=== PATIENT | female | born 1990 | race Caucasian/White ===

== ENCOUNTER 2018-12-24 16:14 | Outpatient (CLI) | payer BC ==
[~2018-12-24] VITALS: Ht 172.7 cm; Wt 109.1 kg
--- NOTE | 2018-12-24 16:20 | NUR ---
Pt here with c/o ?SROM. Pt states feeling leaking of fluid off and on today. Had BPP this afternoon in office. Pt to [facility], explained. 35 weeks gestation G1. Pt with hx of lupus and RA. SVE: FT/thick and high with small amount of bloody discharge, amniotrace done and unable to detect at this time. Roles here and notified. Pt to place a pad on and can be up and ambulating in hallways. Assessment complete. VSS. FHR reactive. Pt denies feeling any contractions or cramping. 1710: pt calls and states she feels leaking at this time. Amniotrace negative, no fluid noted on exam glove. Roles at nurse's station and notified. Pt up and ambulating in hallway.
[2018-12-24 16:59] VITALS: BP 124/73; PULSE 76; TEMP 98.5
[2018-12-24] MEDS ORDERED: PRENATAL PO (17:05)
[2018-12-24] MEDS ORDERED: PLAQUENIL 200M200 MG PO (17:07)
[2018-12-24 18:45] VITALS: BP 130/63; PULSE 82
--- NOTE | 2018-12-24 18:45 | NUR ---
repeat SVE with no changes noted.
--- NOTE | 2018-12-24 19:10 | NUR ---
discharge instructions reviewed with pt and spouse. Questions invited and answered. Ambulatory of unit.
== END 2018-12-24 19:10 | disposition home or self-care (01) ==
LOC: LDRO 16:14 → LDR 16:20 → LDRO 19:10
DX: O99.89 Other specified diseases and conditions complicating pregnancy, childbirth and the puerperium (principal); Z3A.35 35 weeks gestation of pregnancy
CPT/HCPCS: OP

== ENCOUNTER 2019-01-20 06:24 | Inpatient (IN) | payer BC ==
[~2019-01-20] VITALS: Ht 170.2 cm; Wt 112.3 kg
[2019-01-20] VITALS (7 sets, daily range): BP systolic 112–126; BP diastolic 63–70; PULSE 68–88; TEMP 98.3–98.6
[~2019-01-20 06:24] MED LIST: PLAQUENIL 200M200 MG PO; PRENATAL PO
--- NOTE | 2019-01-20 19:00 | NUR ---
G1L0. 38-6. Ambulatory to LDR 3 with spouse for scheduled cytotec induction. Clean gown on. EFM and TOCO explained and applied. Pt denies contractions, LOF or vaginal bleeding. Reports good movement. Plan of care explained to pt and who verbalize understanding, questions answered. VSS. Consents completed. 1930: IV started. LR bolus infusing without difficulties. 1949: SVE /-2. FHR strip reactive. Cytotec explained and administered per orders. Plan of care explained. Call light within reach.
[2019-01-20] MEDS ORDERED: FOLIC ACID 11 MG/TA1 PO (19:23)
[2019-01-20 20:35] LABS: BASO % 0.2 % (0.0-2.0); EOS # 0.2 (0.0-0.7); GRAN # 7.2 (1.4-6.5); GRAN % 74.3 % (42.2-75.2); LYMPH # 1.4 (1.2-3.4); LYMPH % 14.9 % (20.0-51.0); MEAN CELL VOLUME 87 fl (80.0-100.0); MEAN CORPUSCULAR HGB CONC 32 g/dl (33.0-37.0); MEAN PLATELET VOLUME 10.3 fl (7.4-10.4); MONO # 0.7 (0.1-0.6); MONO % 7.6 % (1.7-9.3); PLATELET COUNT 202 K/mm3 (130-400); RED BLOOD COUNT 3.47 M/mm3 (4.10-5.30); REDCELL DISTRIBUTION WIDTH-CV 13.5 % (11.5-14.5)
[2019-01-20 20:42] LABS: HEMATOCRIT 30.3 % (37.0-47.0); HEMOGLOBIN 9.6 g/dl (12.5-16.0); MEAN CORPUSCULAR HEMOGLOBIN 28 pg (27.0-31.0)
[2019-01-21] VITALS (78 sets, daily range): BP systolic 99–151; BP diastolic 51–92; PULSE 66–116; TEMP 98.2–99.7
--- NOTE | 2019-01-21 04:08 | NUR ---
FHR strip reactive. Pt off monitors to shower before starting pitocin. Plan of care explained to pt and who verbalize understanding.
--- NOTE | 2019-01-21 04:36 | NUR ---
Monitors reapplied. Plan of care explained to pt. 0457: LR bolus infusing without difficulties. 0536: Pitocin explained and started infusing at 2mus/hr per protocol. Questions answered.
--- NOTE | 2019-01-21 06:20 | NUR ---
0620-Recieved bedside shift report from ANGELA Gilmore patient resting with spouse at bedside. Pitocin infusing per protocol at 6mu/min. Updated on plan of care. Denies needs. 0702-Up to bathroom, returns to bed. RN adjusts toco, difficulty tracing.. 0730-WL RN continues to readust toco difficulty tracing contractions. 0750-Patient up to BB, Difficulty tracing EFM due to maternal positioning. 0810-RN adjusting EFM due to difficulty tracing contractions. 0826-Up to bathroom 0840-SVE by this RN 2-/-2 Repositioned WL 0900-Dr. Gross Updated on SVE, see physician nontification.
--- NOTE | 2019-01-21 10:00 | NUR ---
1000-Patient calls out to report SROM, Amnitest +, Assisted with linen change and patient standing at bedside. 1012-Dr. Gross updated on patient. 1020-Patient requests epidural, SHU Salgado notified who is on unit. 1026-Patient sitting upright at bedside for epiodural placement. 1035-Test dose administered by SHU Salgado patient tolerates well, see flow record. 1040-Patient WL, Updated on safety and plan of care. Mountain changed due to difficulty tracing contractions. [id number] RN remains at bedside adjusting EFM. 1130-Patient supine for stover placement, Attempt at placement by Laurence Hughes. FHR decel down to 90bpm lasting 80seconds, Repositioned RL and IVF bolus, BP 104/60, HR 74, Oxygen via oxymask at 10l/min, Pit paused. [place] care provided. 1140-Dr. Gross on unit, reviews FHR monitor. Updated on FHR decel and current BP's. 1043-10mg ephedrine given per protocol, see EMAR. Maternal BP 99/58 1150-Pitocin turned back on at 14mu/min 1155-Maternal BP 114/71 Dr. Gross to room, SVE 3/70/-2, [place] care provided. Repositioned back RL. 1215-Stover to DD by this RN Clear yellow urine return. Repositioned LL with peanut ball. 1225-Dr. Gross on unit reviews FHR monitor. Continued difficulty keeping regular tracing of contractions. 1240-Dr. Gross in to see patient. SVE 4//-3, IUPC placed by . Updated patient on plan of care. 1245-Late decel in FHR down to 90-100BPM with spontaneous return to baseline followed by FHR decel down to 90bpm with spontaneous return to baseline. Dr. Gross remains on unit. Reviews strip. Orders to cut pitocin to 6mu/min. 1257-Repositioned LL with peanut.
--- NOTE | 2019-01-21 13:55 | NUR ---
1355-SVE by this RN 4-5/80/-2, Repositioned WR w/peanut. 1400-Updated Dr. Gross, see physician notification. Orders to start increasing pitocin. Pit to 8mu/min at this time.
--- NOTE | 2019-01-21 15:45 | NUR ---
1545-Dr. Gross to patient room. Reviews plan of care with patient. SVE /-2, Repositoned WR with peanut. Pitocin increased per MD order to 14mu/min. 1615-MD reviews Strip. Orders to notify prior to end of shift at 1800 what cervix is. 1655-Patient LL. Reports feeling "tired." Reviewed BP 104/67 and 115/71. Patient denies dizziness or changes in eyesight or hearing. Encouraged to rest and notify nursing if feeling symptomtic of hypotension. 1707-BP 110/62,
--- NOTE | 2019-01-21 19:25 | NUR ---
RN to bedside for SVE, complete and +[address] Gross updated, see physician notification.
--- NOTE | 2019-01-21 19:35 | NUR ---
Pt positioned into lithotomy position. Educated on pushing techniques, pt verbalized understanding. Initial push at this time.
--- NOTE | 2019-01-21 20:30 | NUR ---
2009 - Pt pushing well with contractions. Late decelerations down to 135 bpm noted after pushes with spontaneous return to baseline. Olson catheter removed at this time. 250 mL of urine. 2034 - Pt continues to push well with contractions. Continues to have late decelerations after pushes with spontaneous return to baseline. Dr. Gross called for delivery.
--- NOTE | 2019-01-21 21:14 | NUR ---
2057 - Dr. Gross at bedside. Small crown with pushes. 2099 - Bed broken down and room set up for delivery. IUPC out by Dr. Gross, external toco placed. 2107 - Large crown with pushes. Nursery nurse Gabriel Reyes at bedside. 2113 - Spontaneous delivery of viable boy. Infant placed on mothers abdomen. Cord clamped x [address] Gross and cut by FOB. Care of assumed to Nursery RN. Pitocin off. 2118 - Spontaneous delivery of intact placenta. Pitocin restarted at 333 mL/hr. Fundal massage by Dr. Gross, free flow bleeding with massage. Verbal orders to give IM Methergine now, see 2129 - Repair of second degree laceration by Dr. Gross. Bleeding improved. Pericare provided. New chux beneath patient. Ice pack to perineum. Pt repositioned in bed for comfort. Safety precautions reviewed. Call light within reach. recovery started. See physician delivery note.
--- NOTE | 2019-01-21 23:45 | NUR ---
Pt able to lift and hold each leg off of bed for 5 seconds. Pt positioned to sitting on edge of bed. Epidural catheter removed. Tip smooth, blue, and intact. Pt able to ambulate to bathroom independently. Void 500 mL. Pericare explained and provided. Mesh panties and pad applied. Clean gown on. Pt to wheelchair to transfer to room 216.
[2019-01-22 01:45] VITALS: BP 107/55; PULSE 79; TEMP 98.2
[2019-01-22 05:45] VITALS: BP 105/57; PULSE 91; TEMP 98.4
[2019-01-22] MEDS ORDERED: PERCOCET 325 MG1 TA2 PO (08:03)
[2019-01-22] MEDS ORDERED: IBU600 MG PO (08:03)
[2019-01-22 08:15] VITALS: BP 120/81; PULSE 86; TEMP 98
[2019-01-22 11:40] VITALS: BP 123/72; PULSE 100; TEMP 99.7
[2019-01-22 16:00] VITALS: BP 103/55; PULSE 89; TEMP 98.3
[2019-01-22 21:00] VITALS: BP 110/62; PULSE 98; TEMP 98.2
[2019-01-23 09:00] VITALS: BP 134/70; PULSE 93; TEMP 98.7
[2019-01-23 16:59] VITALS: BP 132/64; PULSE 87; TEMP 97.7
--- NOTE | 2019-01-23 18:30 | NUR ---
1830 DISMISS PAPERWORK GONE OVER AND QUESTIONS ANSWERED. NURSING BABY 1914 DISMISSED TO HOME PER AMB ACC BY AND LINE APPLIANCE ASSEMBLER.
== END 2019-01-23 19:15 | disposition home or self-care (01) | DRG 806 ==
LOC: LDR 06:24 → OB 01-22
PROVIDERS: ADMIT Obstetrics & Gynecology
PROC: 10E0XZZ Delivery of Products of Conception, External Approach (ICD-10-PCS; principal; 2019-01-20)
PROC: 3E033VJ Introduction of Other Hormone into Peripheral Vein, Percutaneous Approach (ICD-10-PCS; 2019-01-20)
PROC: 3E0P7VZ Introduction of Hormone into Female Reproductive, Via Natural or Artificial Opening (ICD-10-PCS; 2019-01-20)
PROC: 0KQM0ZZ Repair Perineum Muscle, Open Approach (ICD-10-PCS; 2019-01-20)
DX: O99.12 Other diseases of the blood and blood-forming organs and certain disorders involving the immune mechanism complicating childbirth (principal); D68.62 Lupus anticoagulant syndrome; Z37.0 Single live birth; M32.9 Systemic lupus erythematosus, unspecified; O99.02 Anemia complicating childbirth; D64.9 Anemia, unspecified; Z3A.39 39 weeks gestation of pregnancy; O62.2 Other uterine inertia; O70.1 Second degree perineal laceration during delivery; O76 Abnormality in fetal heart rate and rhythm complicating labor and delivery; O99.63 Diseases of the digestive system complicating the puerperium; K59.00 Constipation, unspecified
CPT/HCPCS: J2210; J2405; J2590; J7120

== ENCOUNTER → 2019-01-25 | Outpatient (CLI) | payer BC ==
[~2019-01-25] MED LIST changes: +FOLIC ACID 11 MG/TA1 PO; +IBU600 MG PO; +PERCOCET 325 MG1 TA2 PO
--- NOTE | 2019-01-25 17:49 | NUR ---
Pt, Theresa Miller, presents to walk-in clinic with four day old baby boy, Josi Miller, for a evaluation because of difficult latch and sore nipples. She is also concerned about Josi's intake as he has not had as many voids as expected. Josi was born by on [birth year] and weighed 7#13.6 oz (3560 gms). He has nursed about 13 times in the last 24 hours, falling asleep at the breast after only a short feeding and then waking up soon after hungry again. Pt places Josi at the breast and allows him to take a shallow latch. LC advises/assists with better latch by instruction compression of the areola and helping to keep Josi's jaw open wider. Swallows quickly ensue but if the jaw is released the starts a choppy motion of the jaw, likely letting his tongue drop in and or the nipple to get shallow. Because it is hard to keep the best latch without the jaw traction, the nipple shield is placed and Josi nurses well. Feeding on the second breast is similar. The breasts are noted to be pretty full so anticipate as engorgement subsides he may be able to latch better without the shield. After Josi had a gain of 2.9oz (82 gms). Family educated on verifying if diapers have urine as well as stool, anticipate they have missed some as he has a nice void while at clinic. Weaning from the shield also reviewed. POC: Continue q 2-3 hours, use shield or consider pumping briefly prior to latch if breast is firm or Josi cannot hold a latch. F/U: Josi has an appointment with Dr. Ricci after this, and follow up at walk-in clinic as desired. Questions invited and answered.
== END ==
LOC: OLC 12:46
DX: Z39.1 Encounter for care and examination of lactating mother (principal); Z71.89 Other specified counseling

== ENCOUNTER 2021-02-22 17:48 | Outpatient (CLI) | payer BC ==
[2021-02-22 18:00] VITALS: BP 125/84; PULSE 122; TEMP 98.7
--- NOTE | 2021-02-22 18:20 | NUR ---
Bedside report received from Ida MILLER and care was assumed at this time. Pt resting in bed, no signs of distress. Pt denies feeling nauseous while laying flat in bed. Plan of care discussed and pt verbalized an understanding.
[2021-02-22 18:30] VITALS: BP 131/64; PULSE 99; TEMP 100.9
--- NOTE | 2021-02-22 18:30 | NUR ---
RN phoned Dr. Vasquez to give report on triage pt. RN informed provider that pt reports to unit stating she started vomiting and having diarrhea since approx. 0400 and has been unable to keep fluids down even with sublingual Zofran. Pt is a pt of Dr. Guerrero, , 36.3 weeks and was seen in the office yesterday and was 1cm and thick. Pt denies feeling contractions but mild contractions lasting 30-50 sec Q2-5 min are detected on monitor but abdomen palpates soft. Babe's baseline is 160-165 mod. variability, with 15x15 accels no decels. Provider gave verbal order to give 1L LR bolus over 1hr, 4mg IV Zofran in LR bag, check pt's cervix and call once bag is finished.
[2021-02-22 19:00] VITALS: BP 107/64; PULSE 95
--- NOTE | 2021-02-22 19:25 | NUR ---
20G IV STARED IN PT'S LEFT WRIST BY PINKY MCKNIGHT RN AT THIS TIME.
[2021-02-22] MEDS ORDERED: ASPIRIN 81M81 MG/TA2 PO (19:52)
--- NOTE | 2021-02-22 19:57 | NUR ---
VISIBLE BREAKS IN FHTS ARE OBSERVED, RN AT BEDSIDE TO ADJUST MONITOR. MOVEMENT IS HEARD ON MONITOR. MOTHER RESTING IN BED WATCHING TV, NO SIGNS OF DISTRESS. MOTHER DENIES FURTHER NEEDS AT THIS TIME
--- NOTE | 2021-02-22 20:09 | NUR ---
PT RESTING IN BED WATCHING TV, PLAN OF CARE DISCUSSED AND PT VERBALIZED AN UNDERSTANDING. PT STATES SHE "IS STARTING TO FEEL MUCH BETTER", PT DENIES NAUSEA AND STATES CRAMPING HAS GONE AWAY.
--- NOTE | 2021-02-22 20:27 | NUR ---
LR bolus completed at this time. Pt's IV converted to saline lock and EFM and TOCO removed to allow pt to ambulate. Pt reports feeling nauseous upon sitting up and walking around
[2021-02-22 20:30] VITALS: BP 106/59; PULSE 89; TEMP 100.7
--- NOTE | 2021-02-22 20:50 | NUR ---
2ND BAG OF LR STARTED AT THIS TIME. INFUSING AT 999ML/HR. 4MG IV ZOFRAN MIXED IN LR BAG. PT GIVEN 2 PO 500MG TYLENOL WITH CRACKERS. PT DENIES FURTHER NEEDS AT THIS TIME
--- NOTE | 2021-02-22 20:53 | NUR ---
PT BACK TO BED AND EFM AND TOCO REAPPLIED. PT DENIES FURTHER NEEDS AT THIS TIME
--- NOTE | 2021-02-22 21:30 | NUR ---
PATIENT DENIES FEELING CONTRACTIONS, NO CONTRACTIONS PER PALPATION
--- NOTE | 2021-02-22 21:45 | NUR ---
DISCHARGE INSTRUCTIONS REVIEWED WITH PATIENT AND PATIENT VERBALIZED AN UNDERSTANDING AND DENIES FURTHER QUESTIONS. PT GIVEN COPY OF DISCHARGE INSTRUCTIONS AND SIGNED HOSPITAL COPY. PATIENT STATES SHE 'FEELS MUCH BETTER'.
[2021-02-22 21:51] VITALS: BP 111/55; PULSE 81; TEMP 99.3
--- NOTE | 2021-02-22 21:51 | NUR ---
LR BOLUS COMPLETED AT THIS TIME. IV DISCONTINUED AND PRESSURE DRESSING APPLIED. EFM AND TOCO REMOVED TO ALLOW PT TO CHANGE INTO PERSONAL CLOTHES
--- NOTE | 2021-02-22 22:00 | NUR ---
PATIENT DISCHARGED TO HOME IN STABLE UNDELIVERED CONDITION AT THIS TIME. PATIENT AMBULATED OFF UNIT AT THIS TIME WITH SPOUSE
== END 2021-02-22 22:00 | disposition home or self-care (01) ==
LOC: LDRO 17:48 → LDR 18:56 → LDRO 22:00
DX: O21.9 Vomiting of pregnancy, unspecified (principal); O99.613 Diseases of the digestive system complicating pregnancy, third trimester; R19.7 Diarrhea, unspecified; Z3A.36 36 weeks gestation of pregnancy
CPT/HCPCS: OP; J2405; J7120

== ENCOUNTER 2021-03-08 09:00 | Inpatient (IN) | payer BC ==
[~2021-03-08] VITALS: Ht 170.2 cm; Wt 109.1 kg
[~2021-03-08 09:00] MED LIST changes: +ASPIRIN 81M81 MG/TA2 PO
[2021-03-11] VITALS (39 sets, daily range): BP systolic 99–134; BP diastolic 51–82; PULSE 62–85; TEMP 97.6–97.8
--- NOTE | 2021-03-11 06:25 | NUR ---
Pt arrived on unit for scheduled induction. Pt reports occasional contractions, denies any leaking of fluid or vaginal bleeding and reports normal movement. EFM and toco monitors started. Vital signs WNL. Plan of care for induction reviewed. Consents signed. IV started, labs obtained and LR infusing per order. See EMAR and flowsheet for details.
[2021-03-11] MEDS ORDERED: PROBIOTIC BLEN1 EACH PO (06:54)
[2021-03-11 07:21] LABS: BASO # 0.1 K/mm3 (0.0-0.2); BASO % 0.6 % (0.0-2.0); EOS # 0.3 K/mm3 (0.0-0.7); EOS % 2.6 % (0.0-4.0); GRAN % 71.9 % (42.2-75.2); HEMOGLOBIN 11.4 g/dl (12.5-16.0); LYMPH # 1.7 K/mm3 (1.2-3.4); LYMPH % 17.3 % (20.0-51.0); MEAN CELL VOLUME 93 fl (80.0-100.0); MEAN CORPUSCULAR HEMOGLOBIN 30 pg (27-31); MEAN CORPUSCULAR HGB CONC 32 g/dl (33.0-37.0); MEAN PLATELET VOLUME 10.9 fl (7.4-10.4); MONO # 0.7 K/mm3 (0.1-0.6); MONO % 6.8 % (1.7-9.3); PLATELET COUNT 208 K/mm3 (130-400); RED BLOOD COUNT 3.87 M/mm3 (4.10-5.30); REDCELL DISTRIBUTION WIDTH-CV 12.5 % (11.5-14.5)
[2021-03-11 07:26] LABS: HEMATOCRIT 35.8 % (37.0-47.0)
--- NOTE | 2021-03-11 08:04 | NUR ---
Dr. Petty at the bedside. FHR tracing reviewed. Plan of care for induction reviewed. SVE per Dr. Petty / and AROM with clear fluid.
--- NOTE | 2021-03-11 09:39 | NUR ---
0939- SHU Linda at the bedside for epidural placement. Pt sitting up on the edge of the bed. 0940- SPO2 monitor started. 0945- Single shot done per SHU Linda. See anesthesia records for details. 0950- Assisted pt back to supine with left wedge position. EFM and toco monitors adjusted.
--- NOTE | 2021-03-11 10:45 | NUR ---
Difficult tracing ctx pattern. This RN at the bedside with frequent position changes of toco monitor.
[2021-03-11] MEDS ORDERED: MOTRIN 800800 MG/TAB PO (10:48)
--- NOTE | 2021-03-11 14:33 | NUR ---
1408- Pt reports feeling a lot more pressure. SVE done /+2. 1409- Dr. Petty notified. See physician notification for details. 1430- Dr. Petty at the bedside. Pt set up for delivery. 1432- Pushing started. 1433- of viable female . Sparks placed on mom's abdomen. Cords clamped and cut. Care of the given to nursery RN at the bedside. 1435- of placenta. Pitocin started at 333ml/hr per order and protocol. Fundus firm and lochia WNL.
--- NOTE | 2021-03-11 17:30 | NUR ---
Pt up to the bathroom with standby assist and without complications. Pt was able to void. [place]-care done. Pt transferred to room 214 ambulatory. Oriented to room and bed. Call light within reach. Plan of care reviewed with pt and at the bedside.
--- NOTE | 2021-03-11 18:40 | NUR ---
Report recieved. Up to restroom. Resting in bed. POC reviewed and whiteboard updated.
[2021-03-12 02:00] VITALS: BP 118/71; PULSE 77; TEMP 97.8
[2021-03-12 07:10] VITALS: BP 122/72; PULSE 70; TEMP 98.1
--- NOTE | 2021-03-12 08:50 | NUR ---
Initial visit; Parents thanked Mail Room Clerk for offering congratulations and God's blessings for the of their daughter. Mail Room Clerk thanked family for choosing [facility].
== END 2021-03-12 16:20 | disposition home or self-care (01) | DRG 806 ==
LOC: LDR 03-11 06:13 → OB 03-11 17:35
PROVIDERS: ADMIT Obstetrics & Gynecology
PROC: 10E0XZZ Delivery of Products of Conception, External Approach (ICD-10-PCS; principal; 2021-03-11)
PROC: 3E033VJ Introduction of Other Hormone into Peripheral Vein, Percutaneous Approach (ICD-10-PCS; 2021-03-11)
PROC: 10907ZC Drainage of Amniotic Fluid, Therapeutic from Products of Conception, Via Natural or Artificial Opening (ICD-10-PCS; 2021-03-11)
PROC: 0UQGXZZ Repair Vagina, External Approach (ICD-10-PCS; 2021-03-11)
DX: O36.5930 Maternal care for other known or suspected poor fetal growth, third trimester, not applicable or unspecified (principal); O71.4 Obstetric high vaginal laceration alone; Z37.0 Single live birth; Z3A.38 38 weeks gestation of pregnancy; O99.214 Obesity complicating childbirth; E66.9 Obesity, unspecified; J45.909 Unspecified asthma, uncomplicated; O75.89 Other specified complications of labor and delivery; O69.1XX0 Labor and delivery complicated by cord around neck, with compression, not applicable or unspecified; M32.9 Systemic lupus erythematosus, unspecified
CPT/HCPCS: J2590; J2795; J7120

== ENCOUNTER → 2021-04-03 | Outpatient (CLI) | payer BC ==
[~2021-04-03] MED LIST changes: +MOTRIN 800800 MG/TAB PO; +PROBIOTIC BLEN1 EACH PO
--- NOTE | 2021-04-03 13:12 | NUR ---
Pt, Theresa Miller, presents for outpatient consult with 3 week old baby girl, Joseph Miller, for a evaluation. Pt desires to nurse without a nipple shield. Joseph was born on [birth year] and weighed 7#3.0oz (3260 gms). Pt states Joseph has nursed well, reports weight on 03/29/21 was 7#13oz, but having difficulty getting her latched without a nipple shield. Today Joseph weighs 8#1.9oz (3682 gms). Pt reports adequate feedings, voids and yellow stools daily. Pt is advised on cross cradle position to coordinate bringing baby to breast and being able to compress the areola to get a deep latch. Pt handles baby and breast pretty well, doesn't really need assistance once she understands the alignment. After Joseph had a weight gain of 3.5oz (100 gms). POC: Breastfeed ad barbie using techniques aquired at this appt. F/U: As scheduled with Dr. Ricci and Dr. Petty. Questions invited and answered.
== END ==
LOC: LAC 11:11
DX: Z39.1 Encounter for care and examination of lactating mother (principal); Z71.89 Other specified counseling